=== PATIENT | male | born 1965 | race Caucasian/White ===

== ENCOUNTER 2021-04-03 20:37 | Emergency (ER) | payer BC ==
[~2021-04-03] VITALS: Ht 177.8 cm; Wt 93.0 kg
[2021-04-03] MEDS ORDERED: THERA-D2000 UNIT PO (21:15)
[2021-04-03] MEDS ORDERED: CYCL10 PO (22:12)
[2021-04-03] MEDS ORDERED: IBUP600 PO (22:12)
== END 2021-04-03 22:17 | disposition home or self-care (01) ==
LOC: ER 20:37
DX: S06.9X1A Unspecified intracranial injury with loss of consciousness of 30 minutes or less, initial encounter (principal); S20.319A Abrasion of unspecified front wall of thorax, initial encounter; Z23 Encounter for immunization; W22.8XXA Striking against or struck by other objects, initial encounter
CPT/HCPCS: 70450; 71045; 72125; 90714

== ENCOUNTER → 2023-08-17 | Outpatient (CLI) | payer BC ==
[~2023-08-17] MED LIST: CYCL10 PO; IBUP600 PO; THERA-D2000 UNIT PO
[2023-08-17 17:33] LABS: BASOPHILS ABSOLUTE AUTO 0.04 K/mm3 (0.00-0.23); BASOPHILS PERCENT AUTO 1 % (0-2); EOSINOPHILS ABSOLUTE AUTO 0.14 K/mm3 (0.00-0.68); EOSINOPHILS PERCENT AUTO 2 % (0-6); Hemoglobin 14.2 g/dL (13.5-17.5); IMMATURE GRAN ABSOLUTE AUTO 0.02 K/mm3 (0.00-0.10); IMMATURE GRAN PERCENT AUTO 0 % (0-1); LYMPHOCYTES ABSOLUTE AUTO 1.93 K/mm3 (0.84-5.20); LYMPHOCYTES PERCENT AUTO 26 % (21-46); MONOCYTES ABSOLUTE AUTO 0.59 K/mm3 (0.16-1.47); MONOCYTES PERCENT AUTO 8 % (4-13); Mean Corpuscular Volume 91 fL (80-100); Mean Platelet Volume 10.3 fL (9.1-12.4); NEUTROPHILS ABSOLUTE AUTO 4.76 K/mm3 (1.96-9.15); NEUTROPHILS PERCENT AUTO 64 % (41-73); Platelet Count 270 K/mm3 (150-400); RDW Coefficient Variation 12.7 % (11.7-14.2); RDW Standard Deviation 42.3 fL (35.1-46.3); Red Blood Cell Count 4.74 M/mm3 (4.30-5.90); White Blood Cell Count 7.48 K/mm3 (4.00-11.30)
[2023-08-17 17:57] LABS: CHOL/HDL RATIO 4.4; Cholesterol 224 mg/dL (50-200); HDL Cholesterol 51 mg/dL (>39); LDL/HDL RATIO 2.7; Low Density Lipoprotein Chol 135 mg/dL (0-110); Triglycerides 189 mg/dL (30-160); Very Low Density Lipoprot Chol 37 mg/dL (6-32)
[2023-08-19 09:11] LABS: A/G RATIO 2.1 (1.2-2.2); ALKALINE PHOSPHATASE, S 63 IU/L (44-121); ALT (SGPT) 27 IU/L (0-44); AST (SGOT) 23 IU/L (0-40); BILIRUBIN, TOTAL <0.2 mg/dL (0.0-1.2); BUN 17 mg/dL (6-24); BUN/CREATININE RATIO 15 (9-20); CALCIUM, SERUM 8.9 mg/dL (8.7-10.2); CARBON DIOXIDE, TOTAL 24 mmol/L (20-29); CHLORIDE, SERUM 102 mmol/L (96-106); CREATININE, SERUM 1.12 mg/dL (0.76-1.27); GLOBULIN, TOTAL 2.2 g/dL (1.5-4.5); GLUCOSE, SERUM 114 mg/dL (70-99); POTASSIUM, SERUM 4.6 mmol/L (3.5-5.2); PROTEIN, TOTAL, SERUM 6.8 g/dL (6.0-8.5); SODIUM, SERUM 139 mmol/L (134-144)
== END ==
LOC: LAB 16:05 → LAB SHORT 16:05
PROVIDERS: Family Medicine
DX: Z00.01 Encounter for general adult medical examination with abnormal findings (principal); R53.83 Other fatigue; E78.49 Other hyperlipidemia; N42.9 Disorder of prostate, unspecified
CPT/HCPCS: 80053; 80061; 84153; 84403; 84443; 85025